=== PATIENT | female | born 1940 | race Caucasian/White ===

== ENCOUNTER → 2017-05-19 | Outpatient (CLI) | payer MEDICARE, OTHER | END | disposition disaster alternative care site (69) | LOC: GRAD 14:52 | DX: R31.29 Other microscopic hematuria (principal); D18.03 Hemangioma of intra-abdominal structures; K76.89 Other specified diseases of liver; N32.89 Other specified disorders of bladder; I70.90 Unspecified atherosclerosis | CPT/HCPCS: Q9967 ==

== ENCOUNTER → 2017-06-03 | Outpatient (CLI) | payer MEDICARE, OTHER | END | disposition disaster alternative care site (69) | LOC: GRAD 12:29 | DX: M54.16 Radiculopathy, lumbar region (principal); M48.06 Spinal stenosis, lumbar region; M53.2X6 Spinal instabilities, lumbar region; M51.46 Schmorl's nodes, lumbar region; M47.816 Spondylosis without myelopathy or radiculopathy, lumbar region; M89.9 Disorder of bone, unspecified; M79.605 Pain in left leg ==